=== PATIENT | male | born 1970 | race Caucasian/White ===

== ENCOUNTER 2018-01-05 04:33 | Emergency (ER) | payer MEDICARE ==
[~2018-01-05] VITALS: Ht 177.8 cm; Wt 77.1 kg
[~2018-01-05 04:33] MED LIST: CIPRO500 MG PO; HYDROCODONE BIT1 T11 PO; MEDROL DOSEPAK4 MG PO; NKHM
[2018-01-05 04:42] VITALS: BP 168/72
[2018-01-05] MEDS ORDERED: Orphenadrine C100 MG PO (06:19)
[2018-01-05] MEDS ORDERED: Motrin,Rufen800 MG PO (06:19)
[2018-01-05] MEDS ORDERED: MEDROL DOSEPAK4 MG PO (06:19)
== END 2018-01-05 06:34 | disposition home or self-care (01) ==
LOC: ED 04:33
DX: S39.012A Strain of muscle, fascia and tendon of lower back, initial encounter (principal); M51.36 Other intervertebral disc degeneration, lumbar region; X58.XXXA Exposure to other specified factors, initial encounter; Y93.89 Activity, other specified; Y92.89 Other specified places as the place of occurrence of the external cause; Y99.8 Other external cause status

== ENCOUNTER 2018-04-25 16:58 | Emergency (ER) | payer MEDICARE ==
[~2018-04-25] VITALS: Ht 177.8 cm; Wt 86.2 kg
[~2018-04-25 16:58] MED LIST changes: +Motrin,Rufen800 MG PO; +Orphenadrine C100 MG PO
[2018-04-25 17:15] VITALS: BP 178/92
[2018-04-25] MEDS ORDERED: NORVASC10 MG PO (17:17)
[2018-04-25] MEDS ORDERED: DEBROX15 ML OT (17:30)
== END 2018-04-25 17:22 | disposition home or self-care (01) ==
LOC: ED 16:58
DX: I10 Essential (primary) hypertension (principal); F10.10 Alcohol abuse, uncomplicated; H91.91 Unspecified hearing loss, right ear

== ENCOUNTER 2019-11-28 13:06 | Emergency (ER) | payer OTHER ==
[~2019-11-28] VITALS: Ht 175.2 cm; Wt 104.3 kg
[2019-11-28 13:06] VITALS: BP 135/99
[~2019-11-28 13:06] MED LIST changes: +DEBROX15 ML OT; +NORVASC10 MG PO
[2019-11-28 13:42] LABS: BASO % 0.3 % (0.0-1.0); EOS # 0.3 10*3/uL (0.0-0.4); EOS % 3.1 % (1.0-4.0); HEMATOCRIT 42.5 % (42.0-52.0); LYMPH # 0.6 10*3/uL (1.3-4.4); LYMPH % 5.4 % (27.0-41.0); MEAN CELL VOLUME 93.4 fl (80.0-94.0); MEAN CORPUSCULAR HGB 32.1 pg (27.0-31.0); MEAN CORPUSCULAR HGB CONC 34.4 g/dl (33.0-37.0); MEAN PLATELET VOLUME 9.8 fl (9.6-12.3); MONO # 0.7 10*3/uL (0.1-1.0); NEUT # 8.6 10*3/uL (2.3-7.9); PLATELET COUNT AUTOMATED 121 10*3/uL (130-400); RED BLOOD COUNT 4.55 10*6/uL (4.50-5.90); RED CELL DISTRI WIDTH 13.6 % (0-14.5); WHITE BLOOD COUNT 10.2 10*3/uL (4.8-10.8)
[2019-11-28 13:59] LABS: ALBUMIN 3.7 gm/dl (3.1-4.5); ALKALINE PHOSPHATASE 54 U/L (45-117); BUN 15 mg/dl (7-24); CHLORIDE 104 mmol/L (98-107); POTASSIUM 3.9 mmol/L (3.5-5.1); SGOT/AST 37 IU/L (3-35); SGPT/ALT 36 U/L (12-78); SODIUM 137 mmol/L (136-145); TOTAL PROTEIN 7.7 gm/dL (6.4-8.2)
[2019-11-28 14:01] LABS: ETHYL ALCOHOL < 3.0 mg/dl (<3)
[2019-11-28 15:27] LABS: BILIRUBIN NEGATIVE (NEGATIVE); BLOOD 2+ (NEGATIVE); CLARITY SL CLOUDY (CLEAR); COLOR YELLOW (YELLOW); GLUCOSE NEGATIVE (NEGATIVE); KETONE 3+ (NEGATIVE); LEUKO ESTERASE NEGATIVE (NEGATIVE); NITRITE NEGATIVE (NEGATIVE); UROBILINOGEN 0.2 E.U./dl (0.2-1.0)
[2019-11-28 15:33] LABS: BACTERIA 1+; MUCOUS TRACE
[2019-11-28 15:35] LABS: URINE AMPHETAMINES < 1000 (1000ng/ml); URINE BARBITURATES < 200 (200ng/ml); URINE BENZODIAZEPINES > 200 (200ng/ml); URINE CANNABINOIDS (THC) > 50 (50ng/ml); URINE COCAINE < 300 (300ng/ml); URINE METHADONE < 300 (300ng/ml); URINE OPIATES < 300 (300ng/ml); URINE PHENCYCLIDINE < 25 (25ng/ml)
== END 2019-11-28 16:28 | disposition short-term general hospital (02) ==
LOC: ED 13:06
PROVIDERS: Nurse Practitioner Family
DX: S51.811A Laceration without foreign body of right forearm, initial encounter (principal); R45.851 Suicidal ideations; Z79.899 Other long term (current) drug therapy; W26.0XXA Contact with knife, initial encounter; Y93.89 Activity, other specified; Y92.89 Other specified places as the place of occurrence of the external cause; Y99.8 Other external cause status